=== PATIENT | female | born 1980 ===

== ENCOUNTER 2019-11-03 12:54 | Outpatient (CLI) | payer BC ==
--- NOTE | 2019-11-03 13:51 | MMO ---
Left Breast MAMMO Unilat Diag DDI LT+ABBIE. CLINICAL HISTORY: Patient is 39 years old and is seen for additional evaluation requested from prior study. The patient has the following family history of breast cancer: maternal aunt, malignant (generic), GRE[employer] AUNT. The patient has no personal history of cancer. VIEWS: The views performed were: left craniocaudal spot compression with tomosynthesis; left mediolateral oblique spot compression with tomosynthesis; and left mediolateral with tomosynthesis. FILMS COMPARED: The present examination has been compared to prior imaging studies performed at [facility] on 10/28/2019, and at [facility] on 11/03/2019. This study has been interpreted with the assistance of computer-aided detection. MAMMOGRAM FINDINGS: The breast is heterogeneously dense, which could obscure a lesion on mammography. The asymmetry seen at screening mammography does not persist at additional imaging, compatible with superimposed tissue. Sonography of this region demonstrates no concerning findings. There are no suspicious masses, suspicious calcifications, or new areas of architectural distortion. IMPRESSION: THERE IS NO MAMMOGRAPHIC EVIDENCE OF MALIGNANCY. A ROUTINE FOLLOW-UP MAMMOGRAM IN 1 YEAR IS RECOMMENDED. THE RESULTS OF THIS EXAM WERE SENT TO THE PATIENT. ACR BI-RADS Category 2 - Benign finding MAMMOGRAPHY NOTE: 1. A negative mammogram report should not delay a biopsy if a dominant of clinically suspicious mass is present. 2. Approximately 10% to 15% of breast cancers are not detected by mammography. 3. Adenosis and dense breasts may obscure an underlying neoplasm. Reported by: RAYO MERCEDES MD Electonically Signed: [id number]
--- NOTE | 2019-11-03 14:42 | ULT ---
LIMITED LEFT BREAST ULTRASOUND: 11/03/2019 PROVIDED CLINICAL HISTORY: Left breast asymmetry. FINDINGS: Limited sonographic interrogation of the left breast in the region of mammographic concern reveals a normal sonographic appearance to the breast tissue in this region. IMPRESSION: BI-RADS category 2 - benign findings. Return to annual screening mammography recommended. POS: OFF
== END 2019-11-03 12:55 | disposition home or self-care (01) ==
LOC: BICMAMMO 12:54
PROVIDERS: ATTEND Obstetrics & Gynecology
DX: R92.8 Other abnormal and inconclusive findings on diagnostic imaging of breast (principal)
CPT/HCPCS: G0279

== ENCOUNTER 2021-04-22 01:19 | Emergency (ER) | payer BC ==
[2021-04-22] MEDS ORDERED: Acetaminophen 500 MG TAB ONE (02:05)
== END 2021-04-22 03:37 | disposition home or self-care (01) ==
LOC: ERS 01:19
DX: S06.0X0A Concussion without loss of consciousness, initial encounter (principal); Y04.8XXA Assault by other bodily force, initial encounter
CPT/HCPCS: 70450; 70486